=== PATIENT | male | born 1995 | race Caucasian/White ===

== ENCOUNTER 2019-10-12 01:36 | Emergency (ER) | payer MEDICAID ==
[~2019-10-12] VITALS: Ht 182.9 cm; Wt 76.0 kg
--- NOTE | 2019-10-12 02:15 | NUR ---
called for room, not in lobby
--- NOTE | 2019-10-12 02:52 | NUR ---
PT HAS RETURNED FROM [facility] WHERE HE WENT TO GET A CIGARETTE, AMBULATE STEADY GAIT TO ROOM
[2019-10-12] MEDS ORDERED: HALOPERIDOL 5 MG TABLET PO ONE (03:00)
--- NOTE | 2019-10-12 03:00 | NUR ---
Pt presents to room stating he also drank 1/2 bottle of alcohol today as well as yesterday.
[2019-10-12] MEDS ORDERED: HALOPERIDOL 5 MG TABLET ONE (03:03)
[2019-10-12] MEDS ORDERED: PLEASE ENTER ALLERGIES MC SCH (03:30)
[2019-10-12 03:54] VITALS: BP 112/70
== END 2019-10-12 03:56 | disposition home or self-care (01) ==
LOC: ED 03:16
DX: F15.951 Other stimulant use, unspecified with stimulant-induced psychotic disorder with hallucinations (principal)
CPT/HCPCS: 99282

== ENCOUNTER 2019-10-25 16:58 | Emergency (ER) | payer MEDICAID ==
[~2019-10-25] VITALS: Ht 185.4 cm; Wt 74.9 kg
[2019-10-25 17:07] VITALS: BP 120/68
== END 2019-10-25 18:08 | disposition home or self-care (01) ==
LOC: ED 17:26
DX: R05 Cough (principal); F15.10 Other stimulant abuse, uncomplicated; F41.9 Anxiety disorder, unspecified; F17.200 Nicotine dependence, unspecified, uncomplicated; J02.9 Acute pharyngitis, unspecified; M79.10 Myalgia, unspecified site
CPT/HCPCS: 71045; 99283